=== PATIENT | female | born 1940 | race Caucasian/White ===

== ENCOUNTER 2018-12-14 00:32 | Outpatient (CLI) | payer MEDICARE, SELFPAY ==
--- NOTE | 2018-12-14 07:45 | DI.MAMMO_ITS ---
SYMPTOMS/DIAGNOSIS: SCREENING, Z12.31 MAMMOGRAM: Mammograms were interpreted according to the usual protocol including computer analysis with CAD system, tomosynthesis and C view imaging. Comparison is made with exams from 2010 through 2017. The breasts are composed of scattered fibroglandular densities, breast density Category B. No suspicious masses or suspicious microcalcifications are seen. There has been no significant change. IMPRESSION: Category I, negative mammogram. Yearly screening mammography is recommended. [facility] ASSESSMENT OF FINDINGS: Negative. Category 1. Patient will receive a letter notifying them of these results. BI-RADS category B. There are scattered areas of fibroglandular density.
== END 2018-12-14 00:52 ==
PROVIDERS: PCP Legal Medicine; Visit Provider Legal Medicine
DX: Z12.31 Encounter for screening mammogram for malignant neoplasm of breast (principal); M25.562 Pain in left knee; M17.12 Unilateral primary osteoarthritis, left knee
CPT/HCPCS: 77063; 77067; 99211; 99213

== ENCOUNTER 2018-12-14 09:43 | Outpatient (CLI) | payer MEDICARE, SELFPAY ==
--- NOTE | 2018-12-14 09:39 | DI.RAD_ITS ---
SYMPTOMS/DIAGNOSIS: PAIN LEFT KNEE: Comparison is made with 3May18. There is moderate to severe narrowing of the medial femoral tibial joint space. There is spurring from the medial femoral condyle medial tibial plateau as well as some irregularity and flattening of the articular surfaces. There is some various angulation at the knee. There is also spurring at the patellofemoral joint which appears relatively well maintained. 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
== END 2018-12-14 10:03 ==
PROVIDERS: PCP Legal Medicine; Visit Provider Physician Assistant Surgical
DX: M25.562 Pain in left knee (principal); M17.12 Unilateral primary osteoarthritis, left knee
CPT/HCPCS: 73564

== ENCOUNTER 2020-08-13 02:59 | Outpatient (CLI) | payer MEDICARE, SELFPAY ==
--- NOTE | 2020-08-13 07:23 | DI.US_ITS ---
APPROVED REPORT EXAM: Comprehensive 2D, Doppler, and color-flow Echocardiogram Patient Location: Out-Patient Supervisor Smoke Control: Juju Ravi RDCS (AE) Indications: Arrhythmia, SOB Other Information Study Quality: Adequate Conclusion Normal left ventricular wall thickness and chamber size. Estimated ejection fraction is 60 to 65%. There are no segmental wall motion abnormalities Normal right ventricular size and systolic function Both atria are normal in size Trileaflet aortic valve without stenosis or regurgitation Mitral valve is structurally normal with mild regurgitation Tricuspid valve is structurally normal with mild regurgitation, normal estimated right ventricular sy stolic pressure Normal pulmonic valve with trace regurgitation Wall motion Left Ventricle The left ventricle is normal size. The left ventricular systolic function is normal. The left ventric ular ejection fraction is within the normal range. There is normal left ventricular wall thickness. T here is normal LV segmental wall motion. There is no ventricular septal defect visualized. LVEF is 60 -65%. Right Ventricle The right ventricle is normal size. The right ventricular systolic function is normal. The RVSP is 27 .2mmHg. Atria The left atrium size is normal. The right atrium size is normal. The interatrial septum is intact wit h no evidence for an atrial septal defect. Aortic Valve The aortic valve is normal in structure. Aortic valve is trileaflet. There is no aortic valvular sten osis. No aortic regurgitation is present. Mitral Valve The mitral valve is normal in structure. No evidence of mitral valve stenosis. Mild mitral regurgitat ion. Tricuspid Valve The tricuspid valve is normal in structure. There is no tricuspid valve stenosis. Mild tricuspid regu rgitation. Pulmonic Valve The pulmonary valve is normal in structure. There is no pulmonic valvular stenosis. Trace pulmonic re gurgitation. Great Vessels The aortic root is normal in size. The ascending aorta is normal in size. Aortic arch is normal in ca liber. IVC is normal in size and collapses >50% with inspiration. Pericardium There is no pericardial effusion. 2D Dimensions IVSD d PLAX 1.03 cm F: 0.6-1.0 LV Vol A2C d MOD 63.8 mL LVPW d PLAX 1.02 cm F: 0.6 - 1.0 LV Vol A4C d MOD 46.5 mL LVID d PLAX 4.06 cm F: 3.8 - 5.2 LA vol/ BSA A2C s A-L 16.0 mL/m2 LVDs 2.65 cm F: 2.2 - 3.5 LA vol/ BSA A4C s A-L 30.9 mL/m2 Ao Root d 2.23 cm F: 2.7 - 3.3 LA Vol/ BSA Biplane s A-L 22.6 mL/m2 RA Area A4C 10.83 cm2 LA Area A4C s MOD 17.69 cm2 RA Vol/ BSA A4C s A-L 13.3 mL/m2 LA Area A2C s MOD 12.52 cm2 Ao Asc Diam d 3.02 cm F: 2.3 - 3.1 LV EF A4C MOD 57.8 % LV EF Teichholz 63.2 % LV EF A2C MOD 60.8 % LVEF (Manjarrez's) 61.01 % F: 54 - 74 LV EF Biplane MOD 61.0 % LV Volume 45.93 mL F: 46 - 106 SV 35.04 mL LV Volume Index 27.50 mL/m2 F: 29 - 61 SV Index 21.00 mL/m2 LV Vol Biplane MOD 57.4 mL FS 33.80 % M-Mode TAPSE 2.20 cm (M/F) >1.7 LV Diastology MV E' medial 0.062 (>0.07 m/s) E/A Ratio 0.9 LV E/e MED 10.35 (<14) MV E Vmax 0.65 (0.4-1.3 m/s) MV E' lateral 0.073 (>0.1 m/s) MV A Vmax 0.70 (0.4-1.3 m/s) LV E/e LAT 8.80 (<14) MV E/A Ratio 0.88 MV E/E' medial 10.38 MV E/E' lateral 8.83 Aortic Valve LVOT Area 2.32 cm2 AoV Area Vmax 1.95 cm2 LVOT Vmax 0.93 m/s AoV Area/ BSA (Vmax) 1.17 cm2/m2 LVOT Mean Gil. 0.58 m/s JUAN M Mean Gil. 1.76 cm2 LVOT Peak Grad 3.5 mmHg JUAN M Mean Gil. Index 1.06 cm2/m2 LVOT Mean Grad 1.6 mmHg LVOT VTI 0.201 m LVOT Diam s 1.70 cm AoV Vmax 1.10 m/s Velocity Ratio 0.84 AoV Mean Gil. 0.76 m/s AoV Peak Grad 4.9 mmHg LVOT SV 46.63 mL AoV Mean Grad 2.6 mmHg AoV VTI 0.210 m AoV Area VTI 2.22 cm2 AoV Area/ BSA (VTI) 1.33 cm/m2 Mitral Valve MV DT 229 (160-240 msec) MR Vmax 5.65 m/s MV PHT 66 msec MR VTI 1.633 m MV Area PHT 3.31 cm2 MR Peak Grad 127.5 mmHg MV VTI 0.217 m MR Mean Grad 93.5 mmHg MV VTI Annulus 0.224 m MR PISA Radius 0.53 cm MV Area VTI 2.23 (4.0-6.0 cm2) MR EROA 0.11 cm2 MR Aliasing Velocity 0.35 m/s MR PISA 1.76 cm2 Pulmonary Valve PV Vmax 0.96 (0.5-1.5 m/s) RVOT Peak Gr. 1.58 mmHg PV Peak Grad 3.7 mmHg RVOT Mean Gr. 0.85 mmHg PV Mean Grad 1.6 mmHg RVOT VTI 0.145 m PV VTI 0.172 m RVOT Vmax 0.63 m/s Tricuspid Valve TR Peak Grad 24.2 mmHg TR Vmax 2.46 m/s RA Pressure 3.00 mmHg RVSP (TR) 27.2 mmHg
== END 2020-08-13 03:19 ==
PROVIDERS: PCP Legal Medicine; Visit Provider Legal Medicine
DX: R06.02 Shortness of breath (principal); I08.1 Rheumatic disorders of both mitral and tricuspid valves
CPT/HCPCS: 93306

== ENCOUNTER 2020-08-31 03:25 | Outpatient (CLI) | payer MEDICARE, SELFPAY ==
[2020-08-31 12:25] LABS: ALT 25 U/L (14-59); AST 21 U/L (15-37); Albumin 3.4 g/dL (3.4-5.0); Alkaline Phosphatase 76 U/L (46-116); Bilirubin, Direct 0.07 mg/dL (0.00-0.20); Bilirubin, Total 0.4 mg/dL (0.2-1.0); Total Protein 6.5 g/dL (6.4-8.2)
== END 2020-08-31 03:26 | disposition home or self-care (01) ==
LOC: LBO 03:25
PROVIDERS: PCP Legal Medicine; Visit Provider Legal Medicine
DX: E78.5 Hyperlipidemia, unspecified (principal)
CPT/HCPCS: 36415; 80076

== ENCOUNTER → 2021-05-25 09:25 | Outpatient (BNVA) | payer MEDICARE, SELFPAY | PROVIDERS: PCP Legal Medicine; Referring Provider Family Medicine; Visit Provider Surgery | DX: K21.9 Gastro-esophageal reflux disease without esophagitis (principal); R06.02 Shortness of breath; K44.9 Diaphragmatic hernia without obstruction or gangrene; R05.9 Cough, unspecified; Z79.899 Other long term (current) drug therapy | CPT/HCPCS: 99212; 99213 ==

== ENCOUNTER 2021-06-28 01:05 | Outpatient (CLI) | payer MEDICARE, SELFPAY ==
--- NOTE | 2021-06-28 10:14 | DI.MAMMO_ITS ---
Exam(s) MAMMO SCREENING EXAM: MAMMO SCREENING CLINICAL HISTORY: SCREENING MAMMO FOR BREAST CANCER Z12.31. TECHNIQUE: Bilateral full field digital CC and MLO mammographic images were obtained with 3D tomosyn thesis and utilizing computer aided detection (CAD). COMPARISON: Prior mammograms dating back to 2011, the most recent being November 2018. FINDINGS: There are no CAD designations There are no new spiculated masses nor malignant appearing microcalcification groups. There is no significant architectural distortion nor skin thickening-retraction. IMPRESSION: No radiographic evidence of malignancy. BI-RADS Category 1 - Negative Breast Density - Category B - Scattered areas of fibroglandular density Breast density Category C or D implies that the patient has dense breast tissue. Dense breast tissue can make it harder to find cancer on a mammogram. Dense breast tissue is also associated with an incr eased risk of breast cancer. This information about the result of the mammogram report was provided to the patient to raise their awareness. Use this report when you speak with the patient about their risks for breast cancer, which includes their family history. At that time, you may recommend additional screening tests (Ultrasoun d or MRI) as these tests may add significant information. A negative radiographic report should not delay biopsy if a dominant or clinically suspicious mass is present. Up to ten percent of cancers are not identified on mammography. A negative report may reinforce clinical impression. Adenosis and dense breasts may obscure an underlying neoplasm. False positive reports average 6 to 10%. Patient will receive a letter notifying them of these results.
== END 2021-06-28 01:25 ==
PROVIDERS: PCP Legal Medicine; Visit Provider Legal Medicine
DX: Z12.31 Encounter for screening mammogram for malignant neoplasm of breast (principal)
CPT/HCPCS: 77063; 77067

== ENCOUNTER 2021-11-05 00:07 | Outpatient (CLI) | payer MEDICARE, SELFPAY ==
--- NOTE | 2021-11-05 | DI.DEXA_ITS ---
Exam(s) XR DEXA BONE DENSITY W/WO ADRIANNE EXAM: XR DEXA BONE DENSITY W/WO ADRIANNE CLINICAL HISTORY: SCREENING FOR OSTEOPOROSIS, Z13.820, MENOPAUSAL SCREENING, Z78.0 TECHNIQUE: COMPARISON: No exams were available for comparison FINDINGS: Lateral Spine Image: Unremarkable. No compression deformities identified. Left hip: Total T-Score: -2.1. Total Z-Score: -0.1 T- and Z-scores: Findings are consistent with osteopenia. Lumbar Spine: Total T-Score: -0.3 Total Z-Score: 2.4 T- and Z-scores: Within normal limits. IMPRESSION: No evidence of osteoporosis.
== END 2021-11-05 00:27 ==
PROVIDERS: PCP Legal Medicine; Visit Provider Family Medicine
DX: M85.88 Other specified disorders of bone density and structure, other site (principal); Z78.0 Asymptomatic menopausal state
CPT/HCPCS: 77080

== ENCOUNTER 2023-04-19 13:34 | Outpatient (CLI) | payer MEDICARE, SELFPAY ==
[2023-04-19 13:44] VITALS: BP 130/77; PULSE 82; RESP 20; TEMP 36.6; O2SAT 95
--- NOTE | 2023-04-19 13:45 | DI.RAD_ITS ---
Exam(s) XR PAIN CLINIC SACRUM 2V EXAM: XR PAIN CLINIC SACRUM 2V CLINICAL HISTORY: DX: Cluneal Neuropathy TECHNIQUE: 2D and realtime digital imaging was performed. CONTRAST MATERIAL: Refer to procedure report. COMPARISON: No exams were available for comparison FINDINGS: Fluoroscopy was provided for Dr. Trevizo during the performance of a nerve block. Please refer to the procedure report for complete details. Ka,r=4.35 mGy IMPRESSION:
[2023-04-19 14:26] VITALS: BP 147/87; PULSE 78; RESP 19; O2SAT 97
[2023-04-19] MEDS: Bupivacaine 0.5% Pres-Free 10 ML VIAL IJ (14:34)
[2023-04-19] MEDS: Omnipaque 240 MG/ML 50 ML BTL IJ (14:34)
[2023-04-19] MEDS: methylPREDNISolone ACETATE 40 MG/ML VIAL IJ (14:35)
--- NOTE | 2023-04-19 15:41 | PDOC.PAIN_ITS ---
Date of service: 04/19/23 Time of Service: 15:41 Pain Managment Procedure Note Procedure Note Procedure Note: PROCEDURE NOTE Left superior and middle Cluneal Nerve Blocks Date of Service: April 19, 2023 Patient: Codie Srivastava Provider: Pavel Trevizo DO, MPH Codie Srivastava has been [facility] for left superior and middle Cluneal nerve blocks. Pre-operative diagnosis: Low back pain Post-operative diagnosis: Same Pre-procedure pain: VAS= 7/10 COMMENTS: I previously evaluated her in the office Oscar was interviewed and the medical records were reviewed. There were no medical, pharmacologic, radiographic or other structural contraindications to attempting fluoroscopically guided local anesthetic Cluneal nerve blocks. Risks and potential side effects were discussed. I also discussed the potential benefit(s) of the procedure with Codie, and voiced concerns were addressed. After Codie was completely informed about the procedure, the printed consent form was signed. A standard time-out procedure was performed. Codie was placed in the prone position on the fluoroscopy table. Automated blood pressure cuff and pulse oximeter were applied. The skin entry points for approaching the anatomic target points of the left Iliac Crest were identified with fluoroscopy and marked. The skin at the target site area was thoroughly prepared with Chlorhexadine. The skin was then draped. Next, a 25 gauge 3.5 spinal needle was placed under fluoroscopic guidance down on to the target point for each respective segmental medial branch. Position was confirmed in A/P views. Aspiration revealed no blood or clear fluid. Next, 0.25ml of omnipaque 240 was injected at each nerve area. No contrast following a vascular or neural pattern was visualized under continuous fluoroscopy. Next, 0.5 cc of Depomedrol (40 mg/cc) followed by 0.5 ml of preservative-free 0.5% bupivicaine was injected at each level. There was no unusual discomfort expressed by Codie. The needles were withdrawn without difficulty. (49 mls of Omnipaque was wasted) Codie was observed and was without hemodynamic, neurologic, or allergic reactions.? Fluoroscopic images were digitally archived. Left side Directly before the block VAS (0-10) = 7/10 Five minutes after the block VAS (0-10) = 2/10 Percentage relief obtained with this diagnostic block 80% Any improved physical functioning directly after the blocks? Able to move much easier Follow up plans and appointments were discussed with Codie. Codie was instructed to keep careful note of how the usual pain was modified by these injections. Specifically, to keep a pain diary for the next 4 hours using a numeric pain scale of 0-10 and report these results. Post procedure instruction was given as documented in the nursing documentation and having met discharge criteria, the patient was [facility] the [facility]. COMMENTS: No apparent complications. Post-procedure pain: VAS= 2/10 Codie will call back in 2-4 weeks to let us know how she is doing. I personally performed the entire procedure. PAVEL TREVIZO DO, MPH ABPM&R-subspecialty board certification in Pain Medicine [facility]
== END 2023-04-19 13:35 | disposition home or self-care (01) ==
LOC: PC 13:35
PROVIDERS: PCP Family Medicine; Visit Provider Preventive Medicine Occupational Medicine
DX: M54.50 Low back pain, unspecified (principal); G58.8 Other specified mononeuropathies
CPT/HCPCS: 64450; 64510; 72220; J1030; Q9967

== ENCOUNTER 2023-08-09 07:29 | Outpatient (CLI) | payer MEDICARE, SELFPAY ==
[2023-08-09 07:46] VITALS: BP 149/78; PULSE 83; RESP 20; TEMP 36.6; O2SAT 96
[2023-08-09 08:54] VITALS: TEMP 36.6
[2023-08-09] MEDS: fentaNYL 100 MCG/2 ML VIAL IVP (08:54)
[2023-08-09] MEDS: Midazolam 2 MG/2 ML VIAL IVP (08:54)
--- NOTE | 2023-08-09 08:56 | PDOC.PAIN_ITS ---
Date of service: 08/09/23 Time of Service: 08:56 Pain Managment Procedure Note Procedure Note Procedure Note: PROCEDURE NOTE LEFT MEDIAL AND SUPERIOR CLUNEAL NERVE RADIOFREQUENCY ABLATION Date of Service: August 09, 2023 Patient:? Codie Srivastava? Provider:? Pavel Trevizo DO, MPH Codie Srivastava has been [facility] to [facility] for Left medial and superior Cluneal Nerve Radiofrequency Ablation with the [employer] Machine.? Pre Operative Diagnosis: Left Cluneal neuropathy Post Operative Diagnosis: Same Pre procedure pain; VAS= 7/10 Comments: She did well with left Cluneal nerve blocks on 04/19/23 PROCEDURE: Radiofrequency Ablation of medial branches - left medial and superior Cluneal nerves. Codie?was interviewed and the medical record was reviewed.? There were no medical, pharmacologic, radiographic or other structural contraindications to attempting fluoroscopically guided LEFT medial and superior Cluneal nerve Radiofrequency Ablation.?Risks and expected side effects as well as potential benefit of the procedure were reviewed with Codie, and the patient's voiced concerns were addressed.? The printed consent form was signed.? Standard time- out procedure was performed. Codie was brought into the fluoroscopy suite and positioned into the prone position on the fluoroscopy table and allowed to adjust to a position of comfort. A grounding pad was placed on the left abdomen. The sterile field was prepared using chlorhexidine preparation of the skin and sterile draping. Local anesthesia superficial and deep was provided by local infiltration of 2% lidocaine. A 17g 100 mm radiofrequency introducer needle was placed to the planned anatomic targets guided with intermittent fluoroscopy with a perpendicular approach to terminally place at the medial and superior iliac crest (4 probes). The stylets were removed and radiofrequency probes with a 4mm active tip were then inserted. Needle tip position of the probes was verified in the AP view. At each site, the segmental Cluneal nerve was stimulated at 2 Hz to a maximum 1-2 volts determined to finalize safe needle and electrode placement. The patient was awake and responsive during this portion of the procedure. Each target was anesthetized with 1-2 mL of 2 % Lidocaine for anesthesia for lesioning and then each target was lesioned at 80 degrees Celsius for 2 minutes and 30 seconds. Tissue impedances were noted to be between 250 and 500 Ohms. I next injected 0.5 cc of Depomedrol (40 mg/cc) and 1 cc of 0.5% Bupivacaine at each segmental s ensory nerve. There was no unusual discomfort expressed by Codie. The needles were withdrawn without difficulty and bandages placed over the needle placement sites, the patient was observed and was without hemodynamic, neurologic, or allergic reactions. Fluoroscopic images were digitally archived. POST PROCEDURE EVALUATION: IMPRESSION: 1. Summary of procedure. Medication given is documented in the MAR. 2. Follow up plan: Codie to contact [facility] as needed.?This procedure may be repeated if the patient achieves at least 50% improvement in pain/function for at least 6 months. 3. Estimated Blood Loss: <5 mls 4. Fluoroscopy time: Documented in the EMR. Follow up plans and appointments were discussed with the Codie. Post procedure instruction was given as documented in nursing documentation and having met discharge criteria, Codie was discharged from the [place] [facility]. COMMENTS: No apparent complications. Post-procedure pain: VAS= 2/10. I personally completed the entire procedure. PAVEL TREVIZO DO, MPH ABPM&R - Subspecialty board certification in Pain Medicine [facility] [facility]
[2023-08-09 09:00] VITALS: BP 148/101; PULSE 80; RESP 13; O2SAT 95
--- NOTE | 2023-08-09 09:00 | DI.RAD_ITS ---
Exam(s) XR PAIN CLINIC SACRUM 2V EXAM: XR PAIN CLINIC SACRUM 2V CLINICAL HISTORY: Dx: Cluneal Neuropathy TECHNIQUE: 2D and realtime digital imaging was performed. Radiologist not present. CONTRAST MATERIAL: None. COMPARISON: No exams were available for comparison FINDINGS: Fluoroscopy was provided for pain management therapy. Please refer to procedure report or details. Radiation Exposure Index: Ka,r=5.39 mGy IMPRESSION: As above. RADIATION DOSE DELIVERED:
[2023-08-09] MEDS: Lidocaine 2% Pres-Free 5 ML VIAL IJ (09:01)
[2023-08-09] MEDS: Bupivacaine 0.5% Pres-Free 10 ML VIAL IJ (09:01)
[2023-08-09] MEDS: methylPREDNISolone ACETATE 40 MG/ML VIAL IJ (09:01)
[2023-08-09] MEDS: Nerve Block Tray 1 EACH MC (09:02)
[2023-08-09] MEDS: Lactated Ringers 500 ML 80 ML IV (09:06)
== END 2023-08-09 07:30 | disposition home or self-care (01) ==
PROVIDERS: PCP Family Medicine; Visit Provider Preventive Medicine Occupational Medicine
DX: G58.8 Other specified mononeuropathies (principal); M54.50 Low back pain, unspecified
CPT/HCPCS: 123; 64450; 72220; 00123; J0665; J1030; J2250; J3010

== ENCOUNTER 2023-11-30 17:52 | Outpatient (REF) | payer MEDICARE, SELFPAY ==
[2023-11-30 18:55] LABS: Abs Immature Grans 0.03 10^3/uL (0.0-0.06); Absolute Basophil Count 0.04 10^3/uL (0.0-0.2); Absolute Eosinophil Count 0.22 10^3/uL (0.0-0.7); Absolute Lymphocyte Count 1.55 10^3/uL (1.2-3.4); Absolute Monocyte Count 0.56 10^3/uL (0.1-0.8); Absolute Neutrophil Count 4.46 10^3/uL (1.2-6.7); Basophils % 0.6 %; Eosinophils % 3.2 %; HCT 39.5 % (36.0-46.0); HGB 13.1 g/dL (11.2-15.7); Immature Grans % 0.4 %; Lymphocytes % 22.6 %; MCH 30.4 pg (27.0-33.0); MCHC 33.2 % (32.0-36.0); MCV 92 fL (80-95); MPV 10.5 fL (8.0-11.0); Monocytes % 8.2 %; Platelet Count 224 10^3/uL (130-400); RBC 4.31 10^6/uL (3.93-5.22); RDW-SD 44.4 fL; WBC 6.86 10^3/uL (4.4-10.8)
[2023-11-30 19:35] LABS: ALT 25 U/L (14-59); AST 21 U/L (15-37); Albumin 3.5 g/dL (3.4-5.0); Alkaline Phosphatase 77 U/L (46-116); Anion Gap 6.3 mmol/L (3-11); BUN 29 mg/dL (7-18); Bilirubin, Total 0.4 mg/dL (0.2-1.0); CO2 28.7 mmol/L (21.0-32.0); CREATININE 0.7 mg/dL (0.55-1.02); Calculated LDL 91 mg/dL (<100); Chloride 108 mmol/L (98-107); Cholesterol 165 mg/dL (<200); Estimated GFR 86.83 (mL/min/1.73m2); Folate 5.9 ng/mL (8.6-20.0); Glucose 91 mg/dL (74-106); HDL Cholesterol 64 mg/dL (40-60); Potassium 4.6 mmol/L (3.5-5.1); Sodium 143 mmol/L (136-145); TSH (W/Ref FT4) 0.79 uIU/mL (0.36-3.74); Total Protein 6.2 g/dL (6.4-8.2); Triglyceride 51 mg/dL (<150)
[2023-11-30 19:36] LABS: Vitamin B12 > 2000 pg/mL (193-986)
== END 2023-11-30 17:53 | disposition home or self-care (01) ==
LOC: NCHCN 17:52
PROVIDERS: PCP Family Medicine; Visit Provider Nurse Practitioner Family
DX: E78.5 Hyperlipidemia, unspecified (principal); R53.83 Other fatigue
CPT/HCPCS: 80053; 80061; 82306; 82607; 82746; 84443; 85025

== ENCOUNTER → 2023-12-04 01:48 | Outpatient (CLI) | payer MEDICARE, SELFPAY ==
--- NOTE | 2023-12-04 10:30 | DI.RAD_ITS ---
Exam(s) XR CHEST 2V PA LATERAL EXAM: XR CHEST 2V PA LATERAL CLINICAL HISTORY: HIATAL HERNIA,K44.9,COMPARE TO XR [facility] 2021 TECHNIQUE: 2D digital imaging was performed of the chest. Two images were obtained. PA and lateral views were obtained. COMPARISON: CR XR CHEST 2 VIEWS from 07/06/2022 FINDINGS: MEDIASTINUM: There is a large hiatal hernia. HEART: Normal. PULMONARY VASCULATURE: Normal. LUNGS: No focal consolidating infiltrates are seen. Chronic changes are seen in the right lung. PLEURAL SPACE: No pleural effusion or pneumothorax. BONE:Within normal limits for the patient's age. OTHER FINDINGS:Normal. IMPRESSION: No acute pulmonary findings. DATA REPOSITORY: RADIATION DOSE DELIVERED:
== END ==
PROVIDERS: PCP Family Medicine; Visit Provider Nurse Practitioner Family
DX: K44.9 Diaphragmatic hernia without obstruction or gangrene (principal)
CPT/HCPCS: 71046

== ENCOUNTER 2024-03-08 01:53 | Outpatient (CLI) | payer MEDICARE, SELFPAY ==
[2024-03-08 10:31] LABS: ALT 34 U/L (14-59); AST 28 U/L (15-37); Albumin 3.4 g/dL (3.4-5.0); Alkaline Phosphatase 88 U/L (46-116); BUN 18 mg/dL (7-18); Bilirubin, Total 0.45 mg/dL (0.2-1.0); CREATININE 0.8 mg/dL (0.55-1.02); Calcium 8.9 mg/dL (8.5-10.1); Chloride 107 mmol/L (98-107); Estimated GFR 73.52 (mL/min/1.73m2); Glucose 100 mg/dL (74-106); Potassium 4.4 mmol/L (3.5-5.1); Sodium 143 mmol/L (136-145); Total Protein 6.5 g/dL (6.4-8.2)
== END 2024-03-08 01:54 | disposition home or self-care (01) ==
LOC: LBO 01:53
PROVIDERS: PCP Family Medicine; Visit Provider Nurse Practitioner Family
DX: E78.5 Hyperlipidemia, unspecified (principal)
CPT/HCPCS: 36415; 80053

== ENCOUNTER 2024-03-27 10:12 | Outpatient (CLI) | payer MEDICARE, SELFPAY ==
[2024-03-27 10:19] VITALS: BP 123/75; PULSE 83; RESP 20; TEMP 36.6; O2SAT 97
[2024-03-27 10:39] VITALS: PULSE 80; RESP 18; O2SAT 99
[2024-03-27 10:40] VITALS: PULSE 78; RESP 23; O2SAT 97
[2024-03-27 10:46] VITALS: BP 142/85; PULSE 76; PULSE 77; RESP 20; O2SAT 98
[2024-03-27] MEDS: Bupivacaine 0.5% Pres-Free 10 ML VIAL IJ (10:53)
[2024-03-27] MEDS: methylPREDNISolone ACETATE 40 MG/ML VIAL IJ (10:53)
[2024-03-27] MEDS: Nerve Block Tray 1 EACH MC (10:53)
[2024-03-27] MEDS: Omnipaque 240 MG/ML 50 ML BTL IJ (10:53)
--- NOTE | 2024-03-27 10:54 | PDOC.PAIN_ITS ---
Date of service: 03/27/24 Time of Service: 10:54 Pain Managment Procedure Note Procedure Note Procedure Note: PROCEDURE NOTE Left Superior and Medial Cluneal Nerve Blocks Date of Service: March 27, 2024 Patient: Codie Srivastava Provider: Pavel Trevizo DO, MPH Codie Srivastava has been referred to the [facility] for left superior and medial Cluneal nerve blocks. Pre-operative diagnosis: Left Cluneal Neuropathy Post-operative diagnosis: Same Pre-procedure pain: VAS= 8/10 COMMENTS: She had many months of relief with the last Left sided Cluneal nerve blocks, but limited relief with left cluneal nerve RFA in the past, thus we will repeat the cluneal nerve blocks as needed. Codie? was interviewed and the medical records were reviewed. There were no medical, pharmacologic, radiographic or other structural contraindications to attempting fluoroscopically guided left cluneal nerve blocks. Risks and potential side effects were discussed. I also discussed the potential benefit(s) of the procedure with Codie, and voiced concerns were addressed. After Codie was completely informed about the procedure, the printed consent form was signed. A standard time-out procedure was performed. Codie was placed in the prone position on the fluoroscopy table. Automated blood pressure cuff and pulse oximeter were applied. The skin entry points for approaching the anatomic target points of the medial and superior left iliac crest were identified with fluoroscopy and marked. The skin at the target site area was thoroughly prepared with Chlorhexadine. The skin was then draped. Next, a 25 gauge 3.5 spinal needle was placed under fluoroscopic guidance down on to the target point (the left iliac crest) for each respective segmental medial branch. Position was confirmed in A/P views. Aspiration revealed no blood or clear fluid. Next, 0.25ml of omnipaque 240 was injected at each level. No contrast following a vascular or neural pattern was visualized under continuous fluoroscopy. Next, 1/2 cc of Depomedrol (80 mg/cc) followed by 1 ml of preservative-free 0.5% bupivicaine was injected at each cluneal nerve. There was no unusual discomfort expressed by Codie. The needles were withdrawn without difficulty. (49 mls of Omnipaque was wasted) Codie was observed and was without hemodynamic, neurologic, or allergic reactions.? Fluoroscopic images were digitally archived. Provacative testing using the Modified Ha's facet loading test- Left side Directly before the block VAS (0-10) = 8/10 Five minutes after the block VAS (0-10) = 2/10 Percentage relief obtained with this diagnostic block 80% Any improved physical functioning directly after the blocks? Able to move her low back without difficulty. Walking without pain Follow up plans and appointments were discussed with Codie. Codie was instructed to keep careful note of how the usual pain was modified by these injections. Post procedure instruction was given as documented in the nursing documentation and having met discharge criteria, the patient was discharged from the [facility]. COMMENTS: No apparent complications. Post-procedure pain: VAS= 2/10 Codie will call back with 0-4 hour post-procedure pain scores. I personally performed the entire procedure. PAVEL TREVIZO DO, MPH ABPM&R-subspecialty board certification in Pain Medicine [facility] [facility]
--- NOTE | 2024-03-27 14:30 | DI.RAD_ITS ---
Exam(s) XR PAIN CLINIC SACRUM 2V EXAM: XR PAIN CLINIC SACRUM 2V CLINICAL HISTORY: DX: Cluneal Neuropathy TECHNIQUE: 2D and realtime digital imaging was performed. CONTRAST MATERIAL: Refer to procedure report. COMPARISON: No exams were available for comparison FINDINGS: Fluoroscopy was provided for Dr. Trevizo during the performance of a left cluneal nerve block. Please refer to the procedure report for complete details. Ka,r=3.82 mGy IMPRESSION: RADIATION DOSE DELIVERED: 0.0 0.0 0
== END 2024-03-27 10:13 | disposition home or self-care (01) ==
LOC: PC 10:13
PROVIDERS: PCP Nurse Practitioner Family; Visit Provider Preventive Medicine Occupational Medicine
DX: G58.8 Other specified mononeuropathies (principal)
CPT/HCPCS: 64450; 72220; J0665; J1010; Q9967

== ENCOUNTER 2024-11-22 15:30 | Outpatient (REF) | payer MEDICARE, SELFPAY ==
[2024-11-22 21:11] LABS: Abs Immature Grans 0.02 10^3/uL (0.0-0.06); Absolute Basophil Count 0.01 10^3/uL (0.0-0.2); Absolute Eosinophil Count 0.17 10^3/uL (0.0-0.7); Absolute Lymphocyte Count 1.27 10^3/uL (1.2-3.4); Absolute Monocyte Count 0.54 10^3/uL (0.1-0.8); Absolute Neutrophil Count 3.73 10^3/uL (1.2-6.7); Basophils % 0.2 %; HCT 39.9 % (36.0-46.0); HGB 13.3 g/dL (11.2-15.7); Immature Grans % 0.3 %; Lymphocytes % 22.1 %; MCH 30.4 pg (27.0-33.0); MCHC 33.3 % (32.0-36.0); MCV 91 fL (80-95); Monocytes % 9.4 %; Platelet Count 214 10^3/uL (130-400); RBC 4.38 10^6/uL (3.93-5.22); RDW 13.2 % (11.7-14.6); RDW-SD 44.2 fL; WBC 5.74 10^3/uL (4.4-10.8)
[2024-11-22 21:23] LABS: ALT 27 U/L (14-59); AST 22 U/L (15-37); Albumin 3.4 g/dL (3.4-5.0); Alkaline Phosphatase 84 U/L (46-116); Anion Gap 9.4 mmol/L (3-11); BUN 16 mg/dL (7-18); Bilirubin, Total 0.5 mg/dL (0.2-1.0); CO2 27.6 mmol/L (21.0-32.0); CREATININE 0.7 mg/dL (0.55-1.02); Calcium 9.4 mg/dL (8.5-10.1); Chloride 106 mmol/L (98-107); Glucose 80 mg/dL (74-106); Potassium 4.1 mmol/L (3.5-5.1); Sodium 143 mmol/L (136-145); Total Protein 6.2 g/dL (6.4-8.2)
== END 2024-11-22 15:31 | disposition home or self-care (01) ==
LOC: LBN 15:30
PROVIDERS: PCP Nurse Practitioner Family; Visit Provider Physician Assistant Medical
DX: R19.7 Diarrhea, unspecified (principal)
CPT/HCPCS: 80053; 85025

== ENCOUNTER 2024-12-24 01:06 | Outpatient (CLI) | payer MEDICARE, SELFPAY ==
--- NOTE | 2024-12-24 11:45 | DI.RAD_ITS ---
Exam(s) XR KNEE LT 3V AP,LAT,JOHANN EXAM: XR KNEE LT 3V AP,LAT,JOHANN CLINICAL HISTORY: INC LT KNEE PAIN, M25.562,H/O MENISCAL TEAR WITH SURG INTERVENTION 2011. TECHNIQUE: 2D digital imaging was performed. COMPARISON: No exams were available for comparison FINDINGS: 3 views No evidence of fracture. Moderate size joint effusion noted. There is [id number] degenerative narrowing of the medial compartment. Mild Verus deformity. Later al compartment exhibits normal height but does exhibit chondrocalcinosis. Moderate degenerative shafer ges in the patellofemoral compartment. IMPRESSION: Degenerative changes [id number] narrowing of the medial compartment. Joint effusion. DATA REPOSITORY: RADIATION DOSE DELIVERED:
== END 2024-12-24 01:26 ==
LOC: DI 01:06
PROVIDERS: PCP Nurse Practitioner Family; Visit Provider Student in an Organized Health Care Education/Training Program
DX: M17.12 Unilateral primary osteoarthritis, left knee (principal)
CPT/HCPCS: 73562

== ENCOUNTER 2025-03-28 12:13 | Outpatient (CLI) | payer MEDICARE, SELFPAY ==
--- NOTE | 2025-03-28 11:13 | DI.RAD_ITS ---
Exam(s) XR CHEST 2V PA LATERAL EXAM: XR CHEST 2V PA LATERAL CLINICAL HISTORY: CHRONIC COUGH R05.3 DECREASED OXYGEN SATURATION INCREASED PHLEGM HX PULM TECHNIQUE: 2D digital imaging was performed. Two views. COMPARISON: CR XR CHEST 2V PA LATERAL from 12/04/2023 FINDINGS: HEART: Normal size. Aorta: Not dilated. PULMONARY VASCULATURE: Normal. MEDIASTINUM: There is a large hiatal hernia with air-fluid level. LUNGS: No focal infiltrate. Mild chronic fibrotic changes. PLEURAL SPACE: No pleural effusion or pneumothorax. BONE:Unremarkable for age. SOFT TISSUES: Unremarkable. IMPRESSION: Large hiatal hernia. No acute abnormality. DATA REPOSITORY: RADIATION DOSE DELIVERED:
== END 2025-03-28 12:33 ==
LOC: DI 12:13
PROVIDERS: PCP Nurse Practitioner Family; Visit Provider Student in an Organized Health Care Education/Training Program
DX: R05.3 Chronic cough (principal); K44.9 Diaphragmatic hernia without obstruction or gangrene
CPT/HCPCS: 71046

== ENCOUNTER 2025-04-23 04:11 | Outpatient (CLI) | payer MEDICARE, SELFPAY ==
[2025-04-23] MEDS: Levalbuterol HFA 15 GM INH 4 PUFF IH (17:21)
[2025-04-23] MEDS: Inhaler, Assist Device 1 EACH MC (17:21)
--- NOTE | 2025-04-24 10:19 | W.PFT ---
Date of service: 04/23/25 Time of Service: 12:55 Pulmonary Function Test Result Indications: IPF Impression 1. Good patient effort was noted. ATS standards for reproducibility were met. 2. Spirometry was normal 3. Following the administration of a bronchodilator there was not a significant response 4. TLC is reduced at 78% predicted, consistent with mild restrictive lung disease 5. DLCO was 79%, consistent with a mild defect in alveolar gas exchange
== END 2025-04-23 04:12 | disposition home or self-care (01) ==
LOC: RT 04:11
PROVIDERS: PCP Student in an Organized Health Care Education/Training Program; Visit Provider Internal Medicine Pulmonary Disease
DX: J84.112 Idiopathic pulmonary fibrosis (principal)
CPT/HCPCS: 94060; 94726; 94729

== ENCOUNTER → 2025-04-29 09:56 | Outpatient (BNVA) | payer MEDICARE, SELFPAY | PROVIDERS: PCP Student in an Organized Health Care Education/Training Program; Referring Provider Student in an Organized Health Care Education/Training Program; Visit Provider Internal Medicine Pulmonary Disease | DX: R05.9 Cough, unspecified (principal); R06.02 Shortness of breath; J98.4 Other disorders of lung; Z23 Encounter for immunization; Z87.891 Personal history of nicotine dependence | CPT/HCPCS: 90471; 90684; 99205 ==

== ENCOUNTER 2025-05-15 03:56 | Outpatient (CLI) | payer MEDICARE, SELFPAY ==
--- NOTE | 2025-05-15 06:45 | DI.CT_ITS ---
Exam(s) CT CHEST HIGH RESOLUTION EXAM: CT CHEST HIGH RESOLUTION CLINICAL HISTORY: Restrictive lung disease, interstitial lung disease,J98.4. TECHNIQUE: Imaging protocol: Axial computed tomography images were obtained and coronal and sagittal reformatted images were created and reviewed. Lung Computer Aided Detection (CAD) was utilized. COMPARISON: CR XR CHEST 2V PA LATERAL from 12/04/2023 CR XR CHEST 2V PA LATERAL from 03/28/2025 FINDINGS: Tracheobronchial tree: Patent where visualized. No bronchiectasis is present. Pulmonary parenchyma: No consolidation or dominant measurable mass. There is smooth septal thickening seen predominantly in the periphery of the lungs and most marked in the lung bases. There are no suspicious pulmonary nodules. Small pleural based cysts are seen predominantly in the lower lobes. Mediastinum and [place]: No dominant adenopathy or fluid collection. 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 Thyroid gland: Note is made of a 1.6 x 1.4 cm homogeneously hypodense lesion in the left thyroid gland. A nonemergent thyroid ultrasound is recommended for further evaluation. Pleura: No effusion or pneumothorax. Heart: The heart is not dilated. Coronary artery calcifications are present. No pericardial effusion. Aorta: Thoracic aorta non-dilated. Atherosclerotic calcifications are present. Upper abdomen: Duodenal diverticulum is present. Lymph nodes: Within normal limits. Soft tissues: Unremarkable. Bones:Within normal limits for the patient's age. IMPRESSION: 1. Interstitial disease as described above predominantly involving the periphery of the lower lobes. Differential considerations include idiopathic pulmonary fibrosis or other causes of usual interstitial pneumonia. Pulmonary edema, pneumonia or hemorrhage are considered less likely. Neoplasm is also considered less likely. 2. 1.6 x 1.4 cm left thyroid nodule. Nonemergent thyroid ultrasound is recommended for further characterization. RADIATION DOSE DELIVERED: 334.7mGy.cm Total DLP 334.7mGy.cm Total DLP DATA REPOSITORY: All CT scans at this facility are submitted to the National Radiology Data Registry (NRDR) Dose Index Registry (DIR) with the [employer] ([employer]). RADIATION OPTIMIZATION: All CT scans at this facility use at least one of these dose optimization techniques: automated exposure control; mA and/or kV adjustment per patient size (includes targeted exams where dose is matched to clinical indication); or iterative reconstruction.
== END 2025-05-15 04:16 ==
LOC: DI 03:56
PROVIDERS: PCP Student in an Organized Health Care Education/Training Program; Visit Provider Internal Medicine Pulmonary Disease
DX: J98.4 Other disorders of lung (principal)
CPT/HCPCS: 71250

== ENCOUNTER → 2025-06-03 11:27 | Outpatient (BNVA) | payer MEDICARE, SELFPAY | PROVIDERS: PCP Student in an Organized Health Care Education/Training Program; Referring Provider Student in an Organized Health Care Education/Training Program; Visit Provider Internal Medicine Pulmonary Disease | DX: J84.9 Interstitial pulmonary disease, unspecified (principal); J98.4 Other disorders of lung; R06.02 Shortness of breath; E04.1 Nontoxic single thyroid nodule; Z87.891 Personal history of nicotine dependence; K44.9 Diaphragmatic hernia without obstruction or gangrene | CPT/HCPCS: 99214 ==

== ENCOUNTER 2025-06-03 12:27 | Outpatient (CLI) | payer MEDICARE, SELFPAY ==
[2025-06-03 13:07] LABS: ESR 5 mm/hr (0-30)
[2025-06-03 16:24] LABS: Creatine Kinase 72 U/L (34-145)
[2025-06-03 17:30] LABS: C-Reactive Protein < 0.50 mg/dL (<=0.50)
[2025-06-04 13:00] LABS: RNP Ab, IgG <6.0 CU (<20.0); Ro60 Ab, IgG <7.0 CU (<20.0); SS-A/Ro, IgG <2.3 CU (<20.0); SS-B (La) Ab, IgG <3.3 CU (<20.0)
[2025-06-04 18:44] LABS: JO 1 Ab, IgG <0.2 U; Scl 70 Antibodies, IgG 0.4 U; Sm (Smith) Ab, IgG <0.2 U
== END 2025-06-03 12:28 | disposition home or self-care (01) ==
LOC: LBO 12:28
PROVIDERS: PCP Student in an Organized Health Care Education/Training Program; Visit Provider Internal Medicine Pulmonary Disease
DX: J84.9 Interstitial pulmonary disease, unspecified (principal); R06.00 Dyspnea, unspecified
CPT/HCPCS: 36415; 82550; 85652; 86200; 86215; 99214; 86038; 86140; 86225; 86235

== ENCOUNTER → 2025-06-30 00:39 | Outpatient (CLI) | payer MEDICARE, SELFPAY ==
--- NOTE | 2025-06-30 06:30 | DI.US_ITS ---
Exam(s) US THYROID EXAM: US THYROID CLINICAL HISTORY: evaluate thyroid nodule,E04.1. TECHNIQUE: Ultrasound thyroid performed using standard protocol. COMPARISON: CT CT CHEST HIGH RESOLUTION from 05/15/2025 FINDINGS: ISTHMUS: 1 mm RIGHT LOBE: Size: 4.5 x 1.3 x 1.5 cm Echogenicity: Normal. Vascularity: Normal. Nodules: lower pole nodule measuring 1.0 x 0.6 x 0.9 cm. Solid, hypoechoic, wider than tall, smoothly marginated with punctate echogenic foci. TR 5. Follow-up recommended. LEFT LOBE: Size: 5.2 x 1.5 x 1.5 cm Echogenicity: Normal. Vascularity: Normal. Nodules: Lower pole nodule measuring 2.4 x 1.2 x 1.4 cm. Solid, hypoechoic, wider than tall, smoothly marginated with punctate echogenic foci. TR 5. FNA recommended. OTHER FINDINGS: None. IMPRESSION: TR 5 nodules noted at the lower poles of both lobes of thyroid. FNA of the larger nodule at the lower pole of the left lobe is recommended due to size. DATA REPOSITORY:
== END ==
LOC: DI 00:39
PROVIDERS: PCP Student in an Organized Health Care Education/Training Program; Visit Provider Internal Medicine Pulmonary Disease
DX: E04.2 Nontoxic multinodular goiter (principal)
CPT/HCPCS: 76536

== ENCOUNTER → 2025-07-01 11:03 | Outpatient (BNVA) | payer MEDICARE, SELFPAY | PROVIDERS: PCP Student in an Organized Health Care Education/Training Program; Referring Provider Student in an Organized Health Care Education/Training Program; Visit Provider Internal Medicine Pulmonary Disease | DX: J84.9 Interstitial pulmonary disease, unspecified (principal); J98.4 Other disorders of lung; E04.1 Nontoxic single thyroid nodule; K21.9 Gastro-esophageal reflux disease without esophagitis | CPT/HCPCS: 99214 ==